=== PATIENT | male | born 1960 | race Caucasian/White ===

== ENCOUNTER 2021-09-19 22:29 | Emergency (ER) | payer OTHER ==
[~2021-09-19 22:29] MED LIST: ADVAIR 250-501 EACH INH; ARNUITY ELLIP100 MCG PO; ASCORBIC ACID500 MG PO; ASPIRIN EC81 MG PO; AZITHROMYCIN250 MG PO; B-1100 MG PO; DEXAMETHASONE 2M2 MG PO; FISH OIL-OMEGA1 EACH PO; ISOSORBIDE MONO60 MG PO; PREDNISONE20 MG PO; PROMETHAZINE/C120 ML PO; VENTOLIN HFA IN18 GM PO; YUPELRI175 MCG/3 INH; ZINC SULFATE220 M1 PO
[2021-09-19 23:44] LABS: BASOPHIL 0.5 % (0-2); EOSINOPHIL 0.8 % (0-5); HCT 48.7 % (42.0-52.0); HGB 16.4 g/dl (13.2-18.0); LYMPHOCYTE 9.6 % (15-48); MCH 32.2 pg (25.0-31.0); MCHC 33.7 g/dL (32.0-36.0); MCV 95.5 fL (78.0-100.0); MONOCYTE 9.4 % (0-12); NEUTROPHIL 79.3 % (41-80); NRBC 0; PLT 162 K/uL (150-400); RDW 12.3 % (11.5-14.0)
[2021-09-20 00:09] LABS: ALBUMIN 3.7 g/dL (3.4-5.0); BILIRUBIN - TOTAL 1.1 mg/dL (0.2-1.0); BUN/CREAT RATIO (CALC) 12.7 RATIO; CREATININE 0.71 mg/dL (0.67-1.17); GLOBULIN (CALCULATION) 3.8 g/dL; POTASSIUM 3.9 mmol/L (3.5-5.1); TOTAL PROTEIN 7.5 g/dL (6.4-8.2)
[2021-09-20 00:21] LABS: CORONAVIRUS 2019 SARS-COV-2 NEGATIVE (NEGATIVE); INFLUENZA A NAA NEGATIVE (NEGATIVE)
[2021-09-20] MEDS ORDERED: PREDNISONE 20MG20 MG PO (00:35)
[2021-09-20] MEDS ORDERED: AMOX TR-K CLV1 EAC4 PO (00:35)
[2021-09-20] MEDS ORDERED: AZITHROMYCIN250 MG PO (00:35)
[2021-09-20 00:49] LABS: BILIRUBIN NEGATIVE (NEGATIVE); BLOOD NEGATIVE Ery/uL (NEGATIVE); CLARITY CLEAR (CLEAR); COLOR YELLOW (YELLOW); GLUCOSE (U) NORMAL (NORMAL); LEUKOCYTES NEGATIVE Leu/uL (NEGATIVE); NITRITE NEGATIVE (NEGATIVE); PROTEIN NEGATIVE (NEGATIVE); SPECIFIC GRAVITY <=1.005 (1.001-1.030); UROBILINOGEN 0.2 mg/dL (0.2-1.0)
== END 2021-09-20 01:30 | disposition home or self-care (01) ==
LOC: FER 22:29
PROVIDERS: Internal Medicine
DX: J44.0 Chronic obstructive pulmonary disease with (acute) lower respiratory infection (principal); J18.9 Pneumonia, unspecified organism; I10 Essential (primary) hypertension; J44.9 Chronic obstructive pulmonary disease, unspecified; Z87.891 Personal history of nicotine dependence; Z20.822 Contact with and (suspected) exposure to COVID-19
CPT/HCPCS: 36415; 71250; 80053; 81003; 83690; 83880; 84484; 85025; 93005; 94640; 94664; J0696; J1100; U0002